=== PATIENT | male | born 1945 | race Caucasian/White ===

== ENCOUNTER 2016-06-10 11:25 | Emergency (ER) | payer OTHER, MEDICARE ==
[2016-06-10] MEDS ORDERED: FENTANYL CITRATE INJ/PF 100 MCG/2 ML AMPUL IM ONE (11:46)
[2016-06-10] MEDS ORDERED: KETOROLAC TROMETHAMINE INJ/PF 30 MG/1 ML SDV IM ONE (11:46)
--- NOTE | 2016-06-10 11:52 | ER Document Report ---
[id number]. IN LAST 30 DAYS: No <CHLOE RESENDEZ - Last Filed: 06/11/16 07:54> - General Chief Complaint: Hip Pain Stated Complaint: FALL;HIP PAIN Notes: The patient is a 70-year-old male, past medical history hypertension, myelodysplastic syndrome (last chemotherapy 4 months ago), chronic anemia, CKD, presents with left hip pain. He said he woke out of bed today, went to grab his coffee across the room and slipped on the rug landing on his left hip. His neighbors helped him up. He is unable to bear weight on the hip. He had 2 other mechanical falls earlier this weekend. He states that he took his coreg and verapamil together with an extra dose of each this morning because he did not want his blood pressure to be elevated when he was in pain. He is supposed to space the medications throughout the day because he has had low blood pressure in the past when he takes them together. He was at [facility] one month ago when his blood pressure became dangerously low after taking his verapamil and coronary together. He had a central line and a chest wall port was placed, but he says the surgeon told him not to use it yet. He denies numbness, tingling, blood thinner use, head injury, neck pain, back pain, syncope, chest pain or LOC. (CHLOE RESENDEZ) - Related Data Allergies/Adverse Reactions: No Known Allergies Allergy (Verified 03/11/16 11:11) Home Medications: Current Home Medications Allopurinol [Zyloprim 100 mg Tablet] 100 mg PO DAILY 06/10/16 [History] Cyanocobalamin (Vitamin B-12) [Vitamin B-12 Inj 1000 Mcg/1 ml Vial] 1,000 mcg SQ [id number] 06/10/16 [History] Cyclobenzaprine HCl [Flexeril 10 mg Tablet] 10 mg PO DAILYP PRN 06/10/16 [ History] Hydrocodone/Acetaminophen [[place] 10-325 mg Tablet] 1 tab PO Q6HP PRN 06/10/16 [ History] Lidocaine [Lidoderm 5% (700 mg) Transdermal Patch] 1 patch TD DAILY 06/10/16 [ History] Omeprazole 20 mg PO DAILY 06/10/16 [History] Oxycodone HCl [Oxy-Ir 5 mg Tablet] 5 mg PO Q8HP PRN 06/10/16 [History] Temazepam [Restoril] 30 mg PO HSP PRN 06/10/16 [History] Verapamil HCl [Verapamil ER] 240 mg PO BIDBS 06/10/16 [History] Past Medical History - General Information source: Patient - Social History Smoking Status: Current Every Day Smoker Family History: Reviewed & Not Pertinent - Past Medical History Cardiac Medical History: Reports: Hx Hypertension Endocrine Medical History: Reports: Hx Diabetes Mellitus Type 1 Malignancy Medical History: Reports Hx Leukemia GI Medical History: Reports: Hx Gastroesophageal Reflux Disease Musculoskeltal Medical History: Reports Hx Gout Past Surgical History: Reports: Hx Tonsillectomy - Immunizations Immunizations up to date: Yes Hx Diphtheria, Pertussis, Tetanus Vaccination: - unk <CHLOE RESENDEZ - Last Filed: 06/11/16 07:54> Review of Systems <KRISTEN BARDALES - Last Filed: 06/10/16 19:16> <CHLOE RESENDEZ - Last Filed: 06/11/16 07:54> - Review of Systems Notes: REVIEW OF SYSTEMS: CONSTITUTIONAL: -fevers, -chills EENT: -eye pain, -difficulty swallowing, -nasal congestion CARDIOVASCULAR:-chest pain, -syncope. RESPIRATORY: -cough, -SOB GASTROINTESTINAL: -abdominal pain, - nausea, -vomiting, -diarrhea GENITOURINARY: -dysuria, -hematuria MUSCULOSKELETAL: -back pain, -neck pain, +left hip pain SKIN: -rash or skin lesions. HEMATOLOGIC: -easy bruising or bleeding. LYMPHATIC: -swollen, enlarged glands. NEUROLOGICAL: -altered mental status or loss of consciousness, -headache, - neurologic symptoms PSYCHIATRIC: -anxiety, -depression. ALL OTHER SYSTEMS REVIEWED AND NEGATIVE. (CHLOE RESENDEZ) Physical Exam <KRISTEN BARDALES - Last Filed: 06/10/16 19:16> <CHLOE RESENDEZ - Last Filed: 06/11/16 07:54> - Vital signs Vitals: Temp 97.4 F 06/10/16 11:30 (KRISTEN BARDALES) BP 111/33, HR 82, RR 14, Pulse Ox 94% (CHLOE RESENDEZ) - Notes Notes: PHYSICAL EXAMINATION: GENERAL: Well-appearing, well-nourished and in mild distress. HEAD: Atraumatic, normocephalic. EYES: Pupils equal round and reactive to light, extraocular movements intact, sclera anicteric, conjunctiva are normal. ENT: nares patent, oropharynx clear without exudates. Moist mucous membranes. NECK: Normal range of motion, supple without lymphadenopathy LUNGS: Breath sounds clear to auscultation bilaterally and equal. No wheezes rales or rhonchi. HEART: Regular rate and rhythm without murmurs ABDOMEN: Soft, nontender, normoactive bowel sounds. No guarding, no rebound. No masses appreciated. EXTREMITIES: Tenderness over left lateral hip. No shortening or rotation. Painful left hip flexion. No pitting or edema. No cyanosis. NEUROLOGICAL: Cranial nerves grossly intact. Normal speech. Normal sensory, motor, and reflex exams. PSYCH: Normal mood, normal affect. SKIN: Warm, Dry, normal turgor, no rashes or lesions noted. (CHLOE RESENDEZ) Course - Laboratory Result Diagrams: 06/10/16 12:55 06/10/16 12:55 <KRISTEN BARDALES - Last Filed: 06/10/16 19:16> - Laboratory Result Diagrams: 06/10/16 12:55 06/10/16 12:55 - Diagnostic Test Radiology reviewed: Image reviewed, Reports reviewed - EKG Interpretation by Me EKG shows normal: ST-T Waves - ST Depression in II, III, aVF, IV, V, Rate: Normal Rhythm: Other - Junctional rhythm When compared to previous EKG there are: Changes noted <CHLOE RESENDEZ - Last Filed: 06/11/16 07:54> - Re-evaluation Re-evalutation: Patient states repeatedly that his falls are all mechanical in nature. He had no syncope and no presyncopal signs prior to the falls. 06/10/16 13:53 Patient's blood pressure is 70s/40s, most likely from taking his verapamil and coreg at the same time today, which she is not supposed to. He has had similar episodes that resolved without any intervention when the medications wear off. He is in no distress and no complaints, other than his left hip pain. His potassium is slightly elevated, which may be causing his junctional rhythm on EKG. Will provide calcium, insulin and albuterol to help shift the potassium into the cells. He has a chest wall port, but the surgeons at [facility] told him not to use it at this time. 06/10/16 14:24 Prior EKG received from [facility] from 1 month ago. His prior EKG also showed a junctional rhythm. However, he has T-wave inversions in the inferior and lateral leads which are new compared to his 05/02/16 EKG. Patient has no chest pain and troponin is negative. No STEMI on EKG. 06/10/16 14:[address] Joy (Ortho) and he will operate tomorrow. He will serve as consult. Spoke to Natalie Romano (Hospitalist) and she has accepted the patient as inpatient to telemetry for further evaluation and treatment. 06/10/16 15:41 Patient's heart rate slowly decreased down to 48 and his blood pressure decreased down to 69/42. Gave patient 0.5 mg atropine and 5 mg IV glucagon with increase of heart rate to 60s and blood pressure 130/100. Patient 's mental status improved. This leads to further evidence for beta jean pierre/ calcium channel overdose. Spoke to hospitalist and thinks patient needs and ICU with an manager energy. Spoke to the anesthesiology attending to see if patient would be able to be cleared for surgery after his beta jean pierre and calcium channel jean pierre effects have resolved. Due to his renal function and cardiac history, recommends transfer for further evaluation prior to surgery. 06/10/16 16:08 Patient's heart rate and blood pressure decreased again down to HR 40's and BP 60/30. Spoke to [facility] (Dr. Navarrete) and she recommends starting norepinephrine and trying to titrate this down first. In addition, she recommends starting high-dose insulin. 1 unit per kilogram bolus and then 1 unit per kilogram per hour infusion. The goal is to increase insulin and decrease the pressors. She is also recommending 0.5 g/kg/hr dextrose, q30 minute Accu-Cheks and q1 hour BMPs to assess potassium. Replete potassium if below 2.5. No indication for Intralipid therapy at this time. 06/10/16 16:[address] Solano at [facility] in [place] and he has accepted patient to ICU. Arranging critical care transportation at this time. Central line placed and norepinephrine started at 20 mcg/min. Insulin drip started at 50 units per hour. The insulin drip will be increased to 75 units per hour in 30 minutes if the MAP is not above 65. It will then be increased to 100 units per hour to keep the MAP above 65. Spoke to family who is comfortable with plan. Helicopter arrived at 1800. Patient on high-dose insulin drip and norepinephrine drip. Patient's BP and HR improved to 128/72 and 68. His mental status has also improved. (CHLOE RESENDEZ) - Vital Signs Vital signs: Temp Pulse Resp BP Pulse Ox 97.4 F 56 L 18 127/66 H 95 06/10/16 11:30 06/10/16 16:10 06/10/16 18:05 06/10/16 18:05 06/10/16 18:05 (KRISTEN BARDALES) - Laboratory Laboratory results interpreted by ks: 06/10/16 06/10/16 06/10/16 12:55 12:55 12:55 RBC 2.26 L Hgb 7.5 L Hct 22.0 L MCV 98 H RDW 19.1 H Plt Count 127 L Seg Neutrophils % 80.8 H Lymphocytes % 10.6 L PT 15.6 H Sodium 132.2 L Potassium 5.6 H Chloride 94 L Carbon Dioxide 20 L BUN 88 H Creatinine 4.27 H Est GFR ( Amer) 17 L Est GFR (Non-Af Amer) 14 L Glucose 114 H POC Glucose 06/10/16 14:09 RBC Hgb Hct MCV RDW Plt Count Seg Neutrophils % Lymphocytes % PT Sodium Potassium Chloride Carbon Dioxide BUN Creatinine Est GFR ( Amer) Est GFR (Non-Af Amer) Glucose POC Glucose 383 H (KRISTEN BARDALES) - Diagnostic Test Radiology results interpreted by me: 06/10/16 13:17 Mildly displaced supra trochanteric left hip fracture. (CHLOE RESENDEZ) Procedures - Central Line Left Internal jugular Time completed: 17:45 Consent obtained: Yes Central line pre-insertion: Sterile PPE donned, Betadine prep applied, Chloraprep applied, Sterile drapes applied Central line lumen type: Triple Anesthetic type: 1% Lidocaine mL's of anesthesia: 5 Ultrasound guided: Yes CM at insertion site: 18 Line secured with sutures: Yes Central line post-insertion: Blood return from lumens, Biopatch applied, Sutured , Sterile dressing applied, Position confirmed w/ CXR Number of attempts: 1 Complications: No <CHLOE RESENDEZ - Last Filed: 06/11/16 07:54> Critical Care Note - Critical Care Note Total time excluding time spent on procedures (mins): 150 <CHLOE RESENDEZ - Last Filed: 06/11/16 07:54> Discharge <KRISTEN BARDALES - Last Filed: 06/10/16 19:16> - Discharge Admitting Provider: Hospitalist - Dr. Solano Unit Admitted: ICU <CHLOE RESENDEZ - Last Filed: 06/11/16 07:54> - Discharge Clinical Impression: Calcium channel jean pierre overdose, Beta jean pierre toxicity Closed trochanteric fracture of hip Qualifiers: Encounter type: initial encounter Laterality: left Qualified Code(s): S72.102A - Unspecified trochanteric fracture of left femur, initial encounter for closed fracture Condition: Good Disposition: [facility]
[2016-06-10] MEDS ORDERED: FENTANYL CITRATE INJ/PF 100 MCG/2 ML AMPUL IV ONE (12:40)
[2016-06-10] MEDS: NORMAL SALINE 1000 ML 1,000 ML IV PRN ×2 (13:02→14:00)
[2016-06-10 13:16] LABS: ABSOLUTE LYMPHOCYTES (AUTO) 0.9 10^3/uL (0.5-4.7); ABSOLUTE MONOCYTES (AUTO) 0.7 10^3/uL (0.1-1.4); ABSOLUTE NEUT (AUTO) 6.8 10^3/uL (1.7-8.2); BASOPHILS % (AUTO) 0.3 % (0-2); EOSINOPHILS % (AUTO) 0.2 % (0-6); HGB HCT DIFFERENCE 0.5; LYMPHOCYTES % (AUTO) 10.6 % (13-45); MEAN CORPUSCULAR HEMOGLOBIN 33.2 pg (27.0-33.4); MEAN CORPUSCULAR VOLUME 98 fl (80-97); MONOCYTES % (AUTO) 8.1 % (3-13); RED BLOOD COUNT 2.26 10^6/uL (4.35-5.55); RED CELL DISTRIBUTION WIDTH 19.1 % (11.5-14.0); SEGMENTED NEUTROPHILS % (AUTO) 80.8 % (42-78); WHITE BLOOD COUNT 8.4 10^3/uL (4.0-10.5)
[2016-06-10 13:19] LABS: HEMOGLOBIN 7.5 g/dL (13.5-17.0)
[2016-06-10 13:31] LABS: PROTHROMBIN TIME 15.6 SEC (11.4-15.4)
[2016-06-10 13:32] LABS: PARTIAL THROMBOPLASTIN TIME 27.9 SEC (23.5-35.8)
[2016-06-10 13:33] LABS: ANION GAP 18 (5-19); BLOOD UREA NITROGEN 88 mg/dL (7-20); CALCIUM 9.1 mg/dL (8.4-10.2); CARBON DIOXIDE 20 mmol/L (22-30); CHLORIDE 94 mmol/L (98-107); CREATININE RESULT 4.27 mg/dL (0.52-1.25); GLUCOSE 114 mg/dL (75-110); POTASSIUM 5.6 mmol/L (3.6-5.0); SODIUM 132.2 mmol/L (137-145)
[2016-06-10] MEDS ORDERED: ONDANSETRON HCL INJ/PF 4 MG/2 ML SDV IV ONE (13:33)
[2016-06-10] MEDS ORDERED: CALCIUM GLUCONATE 1000 MG/10 ML INJ IV ONE (13:37)
[2016-06-10] MEDS ORDERED: INSULIN REG, HUMAN 100 UNIT/ML 3 ML VIAL (PYX) IV ONE ×2 (13:38→16:38)
[2016-06-10] MEDS ORDERED: DEXTROSE 50%-WATER 25 GM/50 ML DISP.SYRIN IV ONE (13:38)
[2016-06-10] MEDS ORDERED: ALBUTEROL SULFATE 0.083% NEB 2.5 MG/3 ML AMPUL NEB ONE (13:39)
[2016-06-10] MEDS ORDERED: NORMAL SALINE 1000 ML 1,000 ML IV ONE (13:50)
[2016-06-10] MEDS ORDERED: GLUCAGON,HUMAN RECOMB 1 MG INJ IV STA (15:16)
[2016-06-10] MEDS ORDERED: ATROPINE SULFATE INJ 0.4 MG/1 ML VIAL IV ONE (15:19)
[2016-06-10] MEDS ORDERED: (PENDING PHARMACY ID) (Temazepam [Restoril] 30 MG) PO PRN (15:32)
[2016-06-10] MEDS ORDERED: IPRATROPIUM/ALBUTEROL 0.5-2.5 MG/3 ML AMPUL NEB PRN (15:43)
[2016-06-10] MEDS ORDERED: NORMAL SALINE 1000 ML 1,000 ML IV PRN (15:43)
[2016-06-10] MEDS ORDERED: ACETAMINOPHEN 325 MG TABLET PO PRN (15:43)
[2016-06-10] MEDS ORDERED: ONDANSETRON HCL INJ/PF 4 MG/2 ML SDV IV PRN (15:43)
[2016-06-10] MEDS ORDERED: MAGNESIUM HYDROXIDE SUSP 30 ML UDCUP PO PRN (15:43)
[2016-06-10] MEDS ORDERED: TEMAZEPAM 15 MG CAPSULE PO PRN (15:55)
[2016-06-10] MEDS ORDERED: GLUCAGON,HUMAN RECOMB 1 MG INJ IV PRN (15:55)
[2016-06-10] MEDS ORDERED: GLUCAGON,HUMAN RECOMB 1 MG INJ IV ONE (16:00)
[2016-06-10] MEDS ORDERED: DEXTROSE 5%-WATER 250 ML with NOREPINEPHRINE BITARTRATE 4 MG IV PRN ×2 (16:36)
[2016-06-10] MEDS ORDERED: DEXTROSE 40% GEL 15 GM TUBE PO PRN ×2 (16:46)
[2016-06-10] MEDS ORDERED: DEXTROSE 50%-WATER 25 GM/50 ML DISP.SYRIN IV PRN ×2 (16:46)
[2016-06-10] MEDS ORDERED: NORMAL SALINE 100 ML with INSULIN REGULAR, HUMAN 100 UNIT IV PRN ×2 (16:46)
[2016-06-10] MEDS ORDERED: GLUCAGON,HUMAN RECOMB 1 MG INJ IM PRN (16:46)
[2016-06-10] MEDS ORDERED: NOREPINEPHRINE BITARTRATE INJ/PF 4 MG/4 ML SDV IV ONE (16:49)
[2016-06-10] MEDS ORDERED: INSULIN REG, HUMAN 100 UNIT/ML 3 ML VIAL (PYX) ONE ×2 (16:55→16:57)
[2016-06-10] MEDS ORDERED: VERAPAMIL HCL 240 MG TABLET.SA PO SCH (17:00)
[2016-06-10] MEDS ORDERED: LANSOPRAZOLE 30 MG TAB.RAP.DR PO SCH (17:00)
[2016-06-10] MEDS ORDERED: (PENDING PHARMACY ID) (Verapamil Hcl [Verapamil Er] 240 MG) PO SCH (17:00)
[2016-06-10] MEDS ORDERED: DOCUSATE SODIUM 100 MG CAPSULE PO SCH (18:00)
--- NOTE | 2016-06-10 18:19 | ER Document Report ---
Doctor's Note Notes: 06/10/16 18:[address] Solano at [facility] and questioned regarding patient' s medications during transport. Patient's last glucose was 165. Per his request we will stop the insulin drip and use nor epinephrine titrated for blood pressure. Patient is awake and alert and follows commands at time of transfer. Total critical care time of this is infection excluding billable procedures 10 minutes
[2016-06-10 18:43] VITALS: BP 127/66
--- NOTE | 2016-06-10 22:59 | EKG REPORT ---
SEVERITY:- ABNORMAL ECG - ACCELERATED JUNCTIONAL ESCAPE RHYTHM ABNORMAL T, CONSIDER ISCHEMIA, DIFFUSE LEADS : Confirmed by: Praneeth Beyer 10-Jun-2016 22:58:25
[2016-06-11] MEDS ORDERED: LIDOCAINE 5% (700 MG) TRANSDERMAL ADH..PATCH TOP SCH (10:00)
[2016-06-11] MEDS ORDERED: ALLOPURINOL 100 MG TABLET PO SCH (10:00)
== END 2016-06-10 18:17 | disposition short-term general hospital (02) ==
LOC: ER 11:25 → EH 15:20 → UNDOADMIN 15:20 → EH 15:43 → UNDOADMIN 15:43 → UNDODISIN 18:29
PROC: 05HN33Z Insertion of Infusion Device into Left Internal Jugular Vein, Percutaneous Approach (ICD-10-PCS; principal; 2016-06-10)
DX: S72.102A Unspecified trochanteric fracture of left femur, initial encounter for closed fracture (principal); T44.7X1A Poisoning by beta-adrenoreceptor antagonists, accidental (unintentional), initial encounter; T46.1X1A Poisoning by calcium-channel blockers, accidental (unintentional), initial encounter; F17.200 Nicotine dependence, unspecified, uncomplicated; W01.0XXA Fall on same level from slipping, tripping and stumbling without subsequent striking against object, initial encounter; Y92.009 Unspecified place in unspecified non-institutional (private) residence as the place of occurrence of the external cause; K21.9 Gastro-esophageal reflux disease without esophagitis; D46.9 Myelodysplastic syndrome, unspecified; E10.9 Type 1 diabetes mellitus without complications; I10 Essential (primary) hypertension; N18.9 Chronic kidney disease, unspecified; D63.1 Anemia in chronic kidney disease
CPT/HCPCS: 93005; 94640; 99291; 99292; 96372; 96361; 96375; 96365; 86900; 86901; 36415; 86850; 82962; 85025; 85610; 85730; 80048; 84484; 83605; 71010; 73502; 93010; 36556; C1751; C1894; J0461; J0610; J3490 ×2; J3010; J1610; J1885; J1815; J2405; J7060; J7030